=== PATIENT | female | born 1955 | race Asian ===

== ENCOUNTER → 2017-02-12 | Outpatient (CLI) | payer OTHER | END | disposition home or self-care (01) | LOC: RD 10:46 | DX: R10.9 Unspecified abdominal pain (principal); R10.13 Epigastric pain | CPT/HCPCS: A9698 ==

== ENCOUNTER 2019-06-23 15:18 | Emergency (ER) | payer OTHER ==
[~2019-06-23] VITALS: Ht 160 cm; Wt 57.2 kg
[2019-06-23 15:28] VITALS: BP 127/69; Ht 160 cm; Wt 57.2 kg
== END 2019-06-23 19:23 | disposition home or self-care (01) ==
LOC: ED 15:18
DX: J40 Bronchitis, not specified as acute or chronic (principal); J06.9 Acute upper respiratory infection, unspecified; E78.00 Pure hypercholesterolemia, unspecified
CPT/HCPCS: 87804